=== PATIENT | female | born 1980 | race Caucasian/White ===

== ENCOUNTER 2016-05-13 19:08 | Emergency (ER) | payer OTHER ==
[~2016-05-13] VITALS: Ht 167.6 cm; Wt 90.9 kg
[~2016-05-13 19:08] MED LIST: BUSPIRONE HCL10 MG PO; DILAUDID2 MG PO; MOTRIN800 MG PO; PAROXETINE HCL30 MG PO; PROZAC40 MG PO; TRAZODONE HCL50 MG PO
[2016-05-13] MEDS ORDERED: PREDNISONE10 MG PO (21:34)
[2016-05-13 21:53] VITALS: BP 120/90
== END 2016-05-13 21:54 | disposition home or self-care (01) ==
LOC: RME 19:08 → EME 19:08
DX: M17.11 Unilateral primary osteoarthritis, right knee (principal); M67.471 Ganglion, right ankle and foot
CPT/HCPCS: 73564; 73630; 99281; 99283